=== PATIENT | male | born 1965 | race Caucasian/White ===

== ENCOUNTER 2017-07-18 09:44 | Emergency (ER) | payer OTHER ==
[~2017-07-18] VITALS: Ht 170.2 cm; Wt 79.5 kg
[2017-07-18] MEDS ORDERED: IBUP-2070 PO (10:04)
[2017-07-18] MEDS ORDERED: AMOX500C2 PO (10:04)
[2017-07-18] MEDS ORDERED: BACTDSB PO (10:04)
[2017-07-18] MEDS ORDERED: PERTUSS(ACELL),DIPH,TET VAC/PF 0.5 ML VIAL IM ONE (11:45)
[2017-07-18] MEDS ORDERED: LIDOCAINE HCL 1% 10 ML VIAL INJ ONE (11:45)
[2017-07-18] MEDS ORDERED: KETOROLAC TROMETHAMINE 60 MG/2 ML VIAL IM ONE (12:30)
[2017-07-18 13:24] VITALS: BP 126/78
== END 2017-07-18 13:25 | disposition home or self-care (01) ==
LOC: EMS 09:47
DX: L02.415 Cutaneous abscess of right lower limb (principal)
CPT/HCPCS: 10060; 90471; 90715; 96372; 99284; J1885; J3490